=== PATIENT | female | born 1990 | race Caucasian/White ===

== ENCOUNTER 2018-11-15 19:54 | Emergency (ER) | payer MEDICAID ==
[~2018-11-15] VITALS: Ht 175.3 cm; Wt 85.3 kg
[2018-11-15 20:09] VITALS: Ht 175.3 cm; Wt 85.3 kg
[2018-11-15 22:43] VITALS: BP 126/80
== END 2018-11-15 22:43 | disposition home or self-care (01) ==
LOC: ED 19:54
DX: S80.862A Insect bite (nonvenomous), left lower leg, initial encounter (principal); L03.116 Cellulitis of left lower limb; L08.9 Local infection of the skin and subcutaneous tissue, unspecified; E10.8 Type 1 diabetes mellitus with unspecified complications; Z85.850 Personal history of malignant neoplasm of thyroid; W57.XXXA Bitten or stung by nonvenomous insect and other nonvenomous arthropods, initial encounter; Y93.89 Activity, other specified; Y92.89 Other specified places as the place of occurrence of the external cause; Y99.8 Other external cause status
CPT/HCPCS: Q0092

== ENCOUNTER 2018-12-05 21:30 | Emergency (ER) | payer OTHER ==
[~2018-12-05] VITALS: Ht 175.3 cm; Wt 83.0 kg
[2018-12-05 21:38] VITALS: BP 146/99; Ht 175.3 cm; Wt 83.0 kg
== END 2018-12-05 22:44 | disposition home or self-care (01) ==
LOC: ED 21:30
DX: S81.802D Unspecified open wound, left lower leg, subsequent encounter (principal); E10.8 Type 1 diabetes mellitus with unspecified complications; Z85.850 Personal history of malignant neoplasm of thyroid; Z88.0 Allergy status to penicillin; Z88.2 Allergy status to sulfonamides; Z88.1 Allergy status to other antibiotic agents; Z88.8 Allergy status to other drugs, medicaments and biological substances; X58.XXXD Exposure to other specified factors, subsequent encounter

== ENCOUNTER 2019-02-05 15:28 | Emergency (ER) | payer OTHER ==
[~2019-02-05] VITALS: Ht 175.3 cm; Wt 80.3 kg
[2019-02-05 15:31] VITALS: BP 143/85; Ht 175.3 cm; Wt 80.3 kg
== END 2019-02-05 16:48 | disposition home or self-care (01) ==
LOC: ED 15:28
DX: J01.90 Acute sinusitis, unspecified (principal); E11.9 Type 2 diabetes mellitus without complications; Z85.850 Personal history of malignant neoplasm of thyroid; Z88.0 Allergy status to penicillin; Z88.1 Allergy status to other antibiotic agents; Z88.2 Allergy status to sulfonamides; Z88.8 Allergy status to other drugs, medicaments and biological substances

== ENCOUNTER 2019-05-30 12:28 | Emergency (ER) | payer OTHER ==
[~2019-05-30] VITALS: Ht 175.3 cm; Wt 77.1 kg
[2019-05-30 12:34] VITALS: Ht 175.3 cm; Wt 77.1 kg
[2019-05-30 13:51] LABS: BASOPHIL % 0.4 % (0-2); PLATELET COUNT 309 x10^3mcL (130-400); RED CELL DISTRIBUTION WIDTH 12.8 % (11.5-14.5)
[2019-05-30 13:57] LABS: CALCIUM 9.7 mg/dL (8.5-10.1); CARBON DIOXIDE 27.4 mmol/L (21-32); CHLORIDE SERUM 102 mmol/L (98-107); CREATININE SERUM 0.8 mg/dL (0.6-1.0); GFR1 > 60 mL/min; GLUCOSE SERUM 147 mg/dL (74-106); POTASSIUM SERUM 4.1 mmol/L (3.5-5.1); SODIUM SERUM 140 mmol/L (136-145)
[2019-05-30 14:12] LABS: ALBUMIN 3.9 g/dL (3.4-5.0); ALKALINE PHOSPHATASE 45 U/L (46-116); ALT/SGPT 30 U/L (14-59); AST/SGOT 16 U/L (15-37); BILIRUBIN TOTAL 0.3 mg/dL (0.20-1.00); LIPASE 52 IU/L (73-393)
[2019-05-30 14:13] LABS: T4(THYROXINE) 19.2 ug/dL (4.7-13.3)
[2019-05-30 15:00] VITALS: BP 119/80
== END 2019-05-30 15:09 | disposition home or self-care (01) ==
LOC: ED 12:28
PROVIDERS: Emergency Medicine
DX: K21.9 Gastro-esophageal reflux disease without esophagitis (principal); R00.2 Palpitations; E10.9 Type 1 diabetes mellitus without complications; E03.9 Hypothyroidism, unspecified; Z90.89 Acquired absence of other organs; Z85.850 Personal history of malignant neoplasm of thyroid; Z88.0 Allergy status to penicillin; Z88.2 Allergy status to sulfonamides; Z88.1 Allergy status to other antibiotic agents; Z88.8 Allergy status to other drugs, medicaments and biological substances
CPT/HCPCS: 36415; 83880; Q0092